=== PATIENT | male | born 1950 | race Caucasian/White ===

== ENCOUNTER → 2020-10-13 13:25 | Outpatient (CLI) | payer OTHER, MEDICARE, SELFPAY ==
--- NOTE | ~2020-10-13 | CT_ITS ---
EXAMINATION: CT abdomen pelvis wo/w con EXAM DATE: 10/13/2020 14:06 INDICATION: Microscopic hematuria. TECHNIQUE: Spiral CT of the abdomen and pelvis was performed without contrast. The patient was then injected with small bolus intravenous Omnipaque 350, followed by delay of approximately 10 minutes to allow collecting system to opacify. A post contrast scan abdomen and pelvis was performed during inj ection of remaining contrast. A total of 130 cc intravenous contrast was administered. The dose-jamie th product (DLP) for this examination was 2197.16 mGy-cm. The exposure was tailored according to pat ient size (auto mA exposure control), and iterative reconstruction (ASIR) was used as additional dose reduction technique. Comparison is made to prior examination from 03/29/2015. FINDINGS: There is large subxiphoid hernia with omental fat and portion of the left liver lobe latera l segment bulging inside. There is no hydronephrosis or nephrolithiasis. There are several fluid den sity left renal lesions consistent with cysts measuring up to 2.3 cm, a single 1.2 cm cyst in the rig ht kidney midpole. The kidneys enhance symmetrically. There are no suspicious renal lesions. The c alyces and opacified portions of ureters are unremarkable, without filling defects or focal suspiciou s strictures. The bladder is unremarkable. There is severe prostatomegaly, prostate measuring 7 cm t ransverse dimension. The liver, spleen, and pancreas are unremarkable. There is low density left adrenal gland lesion willie uring 3.0 cm, adenoma unchanged. Gallbladder is unremarkable. No biliary obstruction. There is no r etroperitoneal or pelvic lymphadenopathy. There is moderate scattered arteriosclerotic disease. The re is small umbilical fat-containing hernia. The appendix is not positively visualized. There is no pericecal inflammatory change to suggest appe ndicitis. The stomach and small bowel are unremarkable. There is moderate amount of colonic stool. No free intraperitoneal gas. The heart is normal in size. There are no pericardial or pleural e ffusions. Sternotomy wires. The lung bases are unremarkable. There are no osteoblastic or osteolytic lesions identified. IMPRESSION: 1. No suspicious genitourinary findings. 2. Severe prostatomegaly. 3. Left adrenal adenoma. 4. Hernias. Reviewed, dictated and finalized at location A. [employer]
[2020-10-13 13:45] LABS: Estimated Glomerular Filt Rate > 60
== END ==
DX: R31.29 Other microscopic hematuria (principal); D35.02 Benign neoplasm of left adrenal gland
CPT/HCPCS: 74178; Q9967

== ENCOUNTER 2021-08-03 14:19 | Emergency (ER) | payer OTHER, MEDICARE, SELFPAY ==
[2021-08-03 14:23] VITALS: BP 140/69; PULSE 60; RESP 20; TEMP 36.2; O2SAT 98
--- NOTE | 2021-08-03 15:14 | ED.GENADULT ---
HPI - General Adult General Chief complaint: Upper Respiratory Infection <Tiara Ying PA-C - Last Filed: 08/03/21 15:23> Stated complaint: sinus congestion <Tiara Ying PA-C - Last Filed: 08/03/21 15:23> Time Seen by Provider: 08/03/21 14:31 <Tiara Ying PA-C - Last Filed: 08/03/21 15:23> Source: patient <RABIA Ly Last Filed: 08/03/21 15:23> Mode of arrival: ambulatory <RABIA Ly Last Filed: 08/03/21 15:23> Limitations: no limitations <RABIA Ly Last Filed: 08/03/21 15:23> History of Present Illness HPI narrative: Patient is 71-year-old male with chief complaint of approximately 2 weeks of worsening maxillary sinus pain, drainage and congestion. Patient denies any fevers or chills. Patient reports that he has noticed he continuously is blowing his nose he is having some specks of blood. Patient has not been taking anything at home besides Tylenol to try to alleviate his symptoms. Patient reports that his symptoms are not improving so he came to the emergency department to be evaluated. Patient reports that he has had his Covid vaccinations and booster. Declined being tested for Covid. <Tiara Ying PA-C - Last Filed: 08/03/21 15:23> Related Data Home medications: Home Medications Medication Instructions Recorded Confirmed amlodipine 10 mg tablet 10 mg PO DAILY 06/20/20 04/19/21 docusate sodium 100 mg capsule 100 mg PO DAILY 06/20/20 04/19/21 metoprolol tartrate 25 mg tablet 25 mg PO DAILY 06/20/20 04/19/21 rosuvastatin 40 mg tablet 40 mg PO DAILY 06/20/20 04/19/21 silodosin 4 mg capsule 4 mg PO DAILY 06/20/20 04/19/21 <RABIA Ly Last Filed: 08/03/21 15:23> Allergies/adverse reactions: Allergies Allergy/AdvReac Type Severity Reaction Status Date / Time Penicillins Allergy Unknown hives Verified 08/03/21 14:59 <Tiara Ying PA-C - Last Filed: 08/03/21 15:23> Review of Systems Review of Systems: CONSTITUTIONAL: Denies fever, chills, or sweats. EYES: Denies visual changes, redness, or discharge. ENT: Reports sinus pain rhinorrhea, congestion denies sore throat, or otalgia. CARDIOVASCULAR: Denies chest pain, palpitations, or edema. RESPIRATORY: Denies cough or dyspnea. GASTROINTESTINAL: Denies abdominal pain, nausea, vomiting, or diarrhea. GENITOURINARY: Denies dysuria or hematuria. SKIN: Denies rash or itching. MUSCULOSKELETAL: Denies back pain, joint pain, or myalgia. NEUROLOGIC: Denies headache, numbness, dizziness, or weakness. PSYCHIATRIC: Denies anxiety or depression. <Tiara Ying PA-C - Last Filed: 08/03/21 15:23> [facility] Past Medical History Medical History: Medical History (Updated 08/03/21 @ 15:22 by Tiara Ying PA-C) CAD (coronary artery disease) HLD (hyperlipidemia) HTN (hypertension) with goal to be determined <Tiara Ying PA-C - Last Filed: 08/03/21 15:23> Surgical History Surgical History: Surgical History (Updated 04/19/21 @ 15:02 by Noemy Benitez PA-C) S/P CABG x 1 <Tiara Ying PA-C - Last Filed: 08/03/21 15:23> Family History Family History: Family History Other Diabetes mellitus Family history of coronary artery disease Hypertension <Tiara Ying PA-C - Last Filed: 08/03/21 15:23> Social History Social History: Social History (Updated 04/19/21 @ 14:19 by Zoey Kidd CMA) Smoking status: Current some day smoker Tobacco type: cigars Second hand tobacco smoke exposure: No Additional smoking assessment comments: 4-5 little cigars daily Alcohol intake: current Drinks per week: 7 Substance use: never Substance use type: does not use <Tiara Ying PA-C - Last Filed: 08/03/21 15:23> Exam Narrative: GENERAL: Well-appearing, well-nourished, and in no acute distress. HEAD: Normocephalic, atraumatic. EYES: PERRLA and EOMI. ENT: N
== END 2021-08-03 15:45 | disposition home or self-care (01) ==
PROVIDERS: Emergency Provider General Practice; PCP Family Medicine
DX: J01.00 Acute maxillary sinusitis, unspecified (principal); I25.10 Atherosclerotic heart disease of native coronary artery without angina pectoris; E78.5 Hyperlipidemia, unspecified; I10 Essential (primary) hypertension; Z95.1 Presence of aortocoronary bypass graft; F17.290 Nicotine dependence, other tobacco product, uncomplicated
CPT/HCPCS: 99283